=== PATIENT | female | born 1935 | race Caucasian/White ===

== ENCOUNTER → 2023-11-15 10:32 | Outpatient (REF) | payer MEDICARE, SELFPAY ==
[2023-11-16 11:31] LABS: Urine Albumin Negative (Neg - Trace); Urine Bilirubin Negative (Negative); Urine Character Very Cloudy (Clear); Urine Color Yellow; Urine Glucose 1+ (Negative); Urine Ketone Negative (Negative); Urine Leukocyte Negative (Negative); Urine Nitrite Negative (Negative); Urine Occult Blood Negative (Negative); Urine Specific Gravity 1.025 (<1.030); Urine Urobilinogen Negative (Neg - 1+)
== END ==
LOC: OLABMERCHI 10:32
PROVIDERS: ATTENDING PHYSICIAN Hospitalist
DX: N39.0 Urinary tract infection, site not specified (principal)
CPT/HCPCS: 81003

== ENCOUNTER → 2024-01-04 11:15 | Outpatient (REF) | payer MEDICARE, SELFPAY ==
[2024-01-04 12:00] LABS: ALT (SGPT) 16 U/L (0-35); AST (SGOT) 22 U/L (14-36); Albumin 3.5 g/dl (3.5-5.0); Alkaline Phosphatase 87 U/L (38-126); Blood Urea Nitrogen 22 mg/dl (7-17); Calcium 9.1 mg/dl (8.4-10.2); Carbon Dioxide 29 mmol/L (22-30); Chloride 97 mmol/L (98-107); Glucose 166 mg/dl (70-99); Potassium 4.2 mmol/L (3.5-5.1); Sodium 134 mmol/L (135-145); Total Bilirubin 0.5 mg/dl (0.2-1.3); Total Protein 6.2 g/dl (6.3-8.2); eGFR > 60.00
[2024-01-04 14:07] LABS: Glycohemoglobin (HgbA1c) 9.3 % (4.0-5.6)
== END ==
LOC: OLABMERCHI 11:15
PROVIDERS: ATTENDING PHYSICIAN Nurse Practitioner Gerontology; FAMILY PHYSICIAN Hospitalist
DX: E11.40 Type 2 diabetes mellitus with diabetic neuropathy, unspecified (principal)
CPT/HCPCS: 36415; 80053; 83036

== ENCOUNTER → 2024-01-09 12:45 | Outpatient (REF) | payer MEDICARE, SELFPAY | LOC: RAD 12:45 | PROVIDERS: ATTENDING PHYSICIAN Physician Assistant; FAMILY PHYSICIAN Hospitalist | DX: I73.9 Peripheral vascular disease, unspecified (principal); I77.9 Disorder of arteries and arterioles, unspecified; I65.23 Occlusion and stenosis of bilateral carotid arteries | CPT/HCPCS: 93880; 93922; 93925 ==

== ENCOUNTER → 2024-01-18 12:48 | Outpatient (REF) | payer MEDICARE, SELFPAY ==
[2024-01-18 13:24] LABS: % Basophils 0.7 % (0-2); % Eosinophils 4.1 % (0-6); % Immature Granulocytes 0.4 % (0-0.5); % Lymphocytes 21.1 % (20.5-51.1); % Monocytes 10.5 % (1.7-9.3); % Neutrophils 63.2 % (42.2-75.2); Absolute Basophils 0.1 10^3/uL (0-0.2); Absolute Eosinophils 0.3 10^3/uL (0-0.7); Absolute Lymphocytes 1.5 10^3/uL (1.2-3.4); Absolute Monocytes 0.7 10^3/uL (0.1-0.6); Absolute Neutrophils 4.5 10^3/uL (1.4-6.5); Hematocrit 34.7 % (37.0-47.0); Hemoglobin 11.1 g/dL (12.0-16.0); Mean Corpuscular Hgb 27.3 pg (27.0-31.0); Mean Corpuscular Volume 85.5 fL (81.0-99.0); Mean Platelet Volume 11.2 fL (7.4-10.4); Nucleated Red Blood Cells % 0 %; Platelet Count 208 10^3/uL (130-400); Red Blood Cell Count 4.06 10^6/uL (4.20-5.40); Red Cell Dist. Width 13.2 % (11.5-14.5); White Blood Cell Count 7.1 10^3/uL (4.8-10.8)
[2024-01-18 13:59] LABS: Urine Albumin Negative (Neg - Trace); Urine Bilirubin 1+ (Negative); Urine Character Very Cloudy (Clear); Urine Color Yellow; Urine Glucose 1+ (Negative); Urine Ketone Trace (Negative); Urine Leukocyte Trace (Negative); Urine Nitrite Negative (Negative); Urine Occult Blood Negative (Negative); Urine Specific Gravity 1.025 (<1.030); Urine Urobilinogen Negative (Neg - 1+)
[2024-01-18 14:08] LABS: Urine Calcium Oxalate Crystals Present
[2024-01-18 14:09] LABS: Urine Bacteria Many (Negative)
[2024-01-18 14:10] LABS: Urine Red Blood Cell 0-2 /HPF (0-2)
[2024-01-18 14:16] LABS: ALT (SGPT) 13 U/L (0-35); AST (SGOT) 21 U/L (14-36); Albumin 3.3 g/dl (3.5-5.0); Alkaline Phosphatase 91 U/L (38-126); Blood Urea Nitrogen 28 mg/dl (7-17); Calcium 8.8 mg/dl (8.4-10.2); Carbon Dioxide 27 mmol/L (22-30); Chloride 101 mmol/L (98-107); Glucose 146 mg/dl (70-99); Potassium 4.5 mmol/L (3.5-5.1); Sodium 134 mmol/L (135-145); Total Bilirubin 0.4 mg/dl (0.2-1.3); Total Protein 5.7 g/dl (6.3-8.2); eGFR > 60.00
== END ==
LOC: OLABMERCHI 12:48
PROVIDERS: ATTENDING PHYSICIAN Nurse Practitioner Gerontology; FAMILY PHYSICIAN Hospitalist
DX: D64.9 Anemia, unspecified (principal); R44.3 Hallucinations, unspecified; N39.0 Urinary tract infection, site not specified
CPT/HCPCS: 36415; 80053; 81003; 81015; 85025; 87086

== ENCOUNTER → 2024-01-31 12:14 | Outpatient (REF) | payer MEDICARE, SELFPAY ==
[2024-02-01 12:23] LABS: Urine Albumin Negative (Neg - Trace); Urine Bilirubin Negative (Negative); Urine Character Clear (Clear); Urine Color Straw; Urine Glucose Negative (Negative); Urine Ketone Negative (Negative); Urine Leukocyte Negative (Negative); Urine Nitrite Negative (Negative); Urine Occult Blood Negative (Negative); Urine Specific Gravity 1.015 (<1.030); Urine Urobilinogen Negative (Neg - 1+)
== END ==
LOC: OLABMERCHI 12:14
PROVIDERS: ATTENDING PHYSICIAN Nurse Practitioner Gerontology; FAMILY PHYSICIAN Hospitalist
DX: N39.0 Urinary tract infection, site not specified (principal)
CPT/HCPCS: 81003; 87086

== ENCOUNTER 2024-03-19 08:35 | Inpatient (IN) | payer MEDICARE, SELFPAY ==
[2024-03-17 18:52] VITALS: BP 145/105
--- NOTE | 2024-03-17 19:29 | ED.GENMED ---
History of Present Illness
General
Chief Complaint: Abdominal Pain
Source: patient and family
Exam Limitations: none
Time Seen by Provider: 03/17/24 18:58
Nursing documentation reviewed up to this point in time: agreed with
History of Present Illness
History of Present Illness:
88-year-old female hypertensive diabetic breast cancer
Presents with abdominal distention feeling like she needs to vomit she actually stuck her finger down her throat a few times and is feeling better now presents with upper abdominal pain onset a few days ago tells me she never had a colonoscopy, no
prior abdominal surgeries underground smoker she accompanied by her son states that she had diverticulitis before she is having some liquid bowel movements
Past History
Past History
ED Past Medical History: HTN, Hypercholesterolemia, NIDDM and Other (Right breast CA, IS diverticulitis hypertension CAD diabetic hypercholesterol)
ED Past Surgical History: Cardiac (Cardiac stent); Negative Appendectomy or Bowel resection
Social History
Tobacco: Non-smoker
Alcohol: None
Drug: None
Personal:
Living: with family
Employment: Retired
Review of Systems
Review of Systems
All Other Systems: Not applicable
Constitutional: Denies fever or fatigue
Respiratory: Reports no symptoms
Cardiac: Reports no symptoms
ABD/GI: Reports abdominal pain, nausea and vomiting
: Reports no symptoms
Phy Exam
Physical Exam
Physical Exam:
Physical Exam
General: 88 female looks uncomfortable
Neck: No jaundice
Heart: s1/s2 regular rate and rhythm, no murmur. equal radial pulses.
Lungs: no acute respiratory distress. clear bilaterally
Abdomen: Distended tender in the epigastric
Neuro: alert and oriented. no focal neurological deficits
Skin: no rash
Psychiatric: well kept. interactive and cooperative
Extremities: no edema.
Course
Orders/Labs/Results
Orders:
Orders
03/17/24 19:18
Electrocardiogram (*1) Stat
Reason for Study: Abdominal Pain
EKG- Treatment ONCE
Urinalysis Reflex To Culture Urgent
03/17/24 19:21
Iohexol [Omnipaque] See Protocol PO NOW STA
03/17/24 19:22
0.9% Sodium Chloride 1000 ml [Nss] 1,000 ml IV BOLUS
HYDROmorphone [Dilaudid] 0.5 mg IV NOW STA
Ondansetron Injectable [Zofran] 4 mg IV NOW STA
Pantoprazole [Protonix IV] 40 mg IV NOW STA
03/17/24 19:48
Complete Blood Count/With Diff Urgent
Comprehensive Metabolic Panel Urgent
Lipase Urgent
Troponin I Urgent
03/17/24 20:15
CT Abd/pelvis W Iv Cont Urgent
Comment:
Reason For Exam: vomiting, not toerlating po
Abnormal Lab Results
03/17/24
19:48
WBC 11.3 H 10^3/uL
(4.8-10.8)
Abs Immat Gran (auto) 0.1 H 10^3/uL
(0-0.05)
Absolute Neuts (auto) 8.8 H 10^3/uL
(1.4-6.5)
Absolute Monos (auto) 0.9 H 10^3/uL
(0.1-0.6)
Neutrophils % 78.0 H %
(42.2-75.2)
Lymphocytes % 10.9 L %
(20.5-51.1)
BUN 22 H mg/dl
(7-17)
Glucose 104 H mg/dl
(70-99)
03/17/24 19:48
03/17/24 19:48
Vital Signs
Initial and Last Documented VS:
Initial Vital Signs
Temp Pulse Resp BP Pulse Ox
98.3 F 79 16 145/105 99
03/17/24 18:52 03/17/24 18:52 03/17/24 18:52 03/17/24 18:52 03/17/24 18:52
Last Documented Vital Signs
Temp Pulse Resp BP Pulse Ox
98.3 F 88 14 124/68 94
03/17/24 18:52 03/17/24 21:20 03/17/24 21:20 03/17/24 21:20 03/17/24 20:21
MDM/Problems Addressed
Differential Diagnosis Includes:
Bowel obstruction colitis diverticulitis cardiac event pancreatitis reflux duodenitis
MDM/Problems Addressed:
Abdominal pain vomiting
Chronic conditions affecting care: DM, HTN and CAD
Acute Exacerbation and/or Progression of Chronic Illness: DM, HTN and CAD
*Radiology
Radiology exam reviewed: radiology read reviewed
*Pulse Oximetry
Patient hypoxic: no
*EKG
Interpreted by ED Provider?: Yes
Interpretation: normal
Comparison EKG: no comparison EKG present
Heart Rate: 78
Rate: normal
Interval: normal interval
Ischemia: non-specific ST changes
*Civil Engineering Project Manager Interpretation
Rate: normal
Interpretation: normal
Heart Rate: 78
Rhythm: sinus
*Critical Care Note
Total Time (30-74mins, 75-104mins- exclusive of procedures): Not Applicable
Update Note
Update Note:
Update patient unable to tolerate p.o. contrast ordered with IV only
10:25 PM CAT scan report noted patient will require admission unable to tolerate p.o.
Unclear if this is gastritis or related to hiatal hernia,
ED Attending Note
-
Portions of this chart may have been created with voice recognition software.� Occasional wrong word or��sound alike� substitutions may have occurred due to the inherent limitations of voice recognition software.
Discharge Plan
Departure
Patient Disposition: Admit
Date of Disposition: 03/17/24
Time of Disposition: 22:40
Admit to: Med/Surg
Presentation/result/management discussed w/ accepting MD/DO: Hospitalist
Patient with high blood pressure during this ER visit?: No
Condition: Fair
Discharge Problem:
Intractable nausea and vomiting
Instructions: Abdominal Pain
Prescriptions:
No Action
ezetimibe [Zetia] 10 MG tablet
10 mg PO DAILY
alprazolam 0.25 MG tablet
0.25 mg PO DAILY PRN (Reason: anxiety)
Patient Comments:
02/21/2023: last filled 10/25/22, 90 tabs for 90 days from [id number]
aspirin 81 mg Tablet,Delayed Release (Dr/Ec)
81 mg PO DAILY
amlodipine 10 mg tablet
10 mg PO DAILY
insulin aspart U-100 [Novolog FlexPen U-100 Insulin] 100 unit/mL (3 mL) insulin pen
20 unit SC MEALS
insulin degludec [Tresiba FlexTouch U-100] 100 unit/mL (3 mL) insulin pen
46 unit SC HS
acetaminophen [Tylenol] 325 mg Tablet
325 mg PO Q6H PRN (Reason: Pain)
rosuvastatin 20 mg Tablet
20 mg PO QPM
carvedilol 12.5 mg Tablet
12.5 mg PO BID
Rx Instructions:
hold for HR <60
cyanocobalamin (vitamin B-12) 1,000 mcg Tablet
1,000 mcg PO DAILY
pantoprazole 20 mg Tablet,Delayed Release (Dr/Ec)
20 mg PO DAILY
Saccharomyces boulardii [Florastor] 250 mg Capsule
250 mg PO DAILY
Rx Instructions:
daily for 14 days start 03/13/24
escitalopram oxalate 5 mg Tablet
5 mg PO HS
cholecalciferol (vitamin D3) [Vitamin D3] 25 mcg (1,000 unit) Tablet
25 mcg PO DAILY
Referrals:
UNKNOWN - PT DOES,NOT KNOW [Family Provider] -
Interventions
Interventions:
*Risk Screen - Suicide Last Done: 03/17/24 18:52
*General Assessment Last Done: 03/17/24 18:52
*Neglect/Abuse Screening Last Done: 03/17/24 18:52
ED- Fall Risk Assessment Last Done: 03/17/24 20:27
*ED COVID-19 Vaccine History Last Done: 03/17/24 19:36
[facility] Assessment Last Done: 03/17/24 20:27
Discharge Date and Time
Print Language: DUTCH
[2024-03-17 19:42] VITALS: BMI 34.1
[2024-03-17] MEDS: ZOFRAN 4 MG IV (19:51)
[2024-03-17] MEDS: NSS 1000 IV (19:51)
[2024-03-17] MEDS: PROTONIX IV 40 MG IV (19:54)
[2024-03-17 19:55] LABS: % Basophils 0.4 % (0-2); % Eosinophils 1.9 % (0-6); % Immature Granulocytes 0.5 % (0-0.5); % Lymphocytes 10.9 % (20.5-51.1); % Monocytes 8.3 % (1.7-9.3); Absolute Basophils 0.1 10^3/uL (0-0.2); Absolute Eosinophils 0.2 10^3/uL (0-0.7); Absolute Immature Granulocytes 0.1 10^3/uL (0-0.05); Absolute Lymphocytes 1.2 10^3/uL (1.2-3.4); Absolute Monocytes 0.9 10^3/uL (0.1-0.6); Absolute Neutrophils 8.8 10^3/uL (1.4-6.5); Hematocrit 41.2 % (37.0-47.0); Hemoglobin 13.6 g/dL (12.0-16.0); Mean Corpuscular Volume 81.9 fL (81.0-99.0); Mean Platelet Volume 9.5 fL (7.4-10.4); Nucleated Red Blood Cells % 0 %; Platelet Count 262 10^3/uL (130-400); Red Blood Cell Count 5.03 10^6/uL (4.20-5.40); Red Cell Dist. Width 13.4 % (11.5-14.5); White Blood Cell Count 11.3 10^3/uL (4.8-10.8)
[2024-03-17] MEDS: DILAUDID 0.5 MG IV (19:57)
[2024-03-17] MEDS: OMNIPAQUE 50 ML PO (20:01)
[2024-03-17 20:12] LABS: ALT (SGPT) 16 U/L (0-35); AST (SGOT) 25 U/L (14-36); Albumin 4.3 g/dl (3.5-5.0); Alkaline Phosphatase 87 U/L (38-126); Blood Urea Nitrogen 22 mg/dl (7-17); Calcium 9.6 mg/dl (8.4-10.2); Carbon Dioxide 29 mmol/L (22-30); Chloride 99 mmol/L (98-107); Estimated Creatinine Clearance 69 ml/min; Glucose 104 mg/dl (70-99); Lipase 39 U/L (23-300); Potassium 3.9 mmol/L (3.5-5.1); Sodium 137 mmol/L (135-145); Total Bilirubin 0.6 mg/dl (0.2-1.3); Total Protein 7.4 g/dl (6.3-8.2); eGFR > 60.00
--- NOTE | 2024-03-17 20:19 | EDRN ---
Pt ambulated to bathroom to change her diaper because she says she has been having loose stools. Pt returned and started drinking contrast for CT and within couple minutes she vomited liquid. Dr Klein informed and will change CT to IV contrast
only. Pt says she feels much better now 'I haven't felt relief like that before.' Pt has had generalized abdominal pain for the past 2-3 weeks. Pain got worse after she ate lunch today - chess/bologna sandwich and avocado. Pain has been
constant. Pt says she usually makes herself vomit and then she feels better however when she did that today, the pain did not get better. Pt feels bloated and has been burping. Pt denies fever/chills/cough, cp, sob, change in appetite, urinary
symptoms, n/v/d/constipation, weakness, dizziness.
[2024-03-17 20:21] VITALS: BP 126/77
[2024-03-17 20:24] LABS: Troponin I < 0.012 ng/ml
[2024-03-17 21:20] VITALS: BP 124/68
[2024-03-17] MEDS: D5/0.45%NACL 297 IV (23:16)
[2024-03-17 23:19] VITALS: BP 120/74
--- NOTE | 2024-03-17 23:31 | HPS.HSE ---
Addendum entered and electronically signed by Gracia Trevino, 03/18/24 01:25:
IDDM
-will half dose of Tresiba while NPO, cont D5 1/2 NS for now for 1 more bag, monitor glucose
Original Note:
Family Physician
-
Family Physician: NOT KNOW UNKNOWN - PT DOES
Chief Complaint
-
abdominal pain, vomiting
History of Present Illness
The patient is an 88 yo woman with PMH significant for HTN, breast cancer, IDDM, diverticulitis, who presents to the ED due to several days of nausea, early satiety, and vomiting associated with diffuse upper abdominal pain and discomfort. She has
been making herself throw up to relieve her symptoms though abdominal discomfort is persistent. She gets full quickly, and then experiences n/v with oral intake. She denies fever, no chills, no CP, she does have occasional FENG and intermittent
liquid bowel movements, non-bloody. No abdominal surgeries. She mentions her PCP at the assisted living facility where she lives reduced her BP meds by half due to lower BP's recently.
ED txt:
Dilaudid 0.5 mg IV once, IV Zofran, IV Protonix 40 mg, IVF 1 liter, now on D5 1/2 NS 125 mL per hour
Medical History
Past Medical History
Past Medical History: Reports CAD, Cancer (Breast), HTN, Hypercholesterolemia, IDDM and Other (Diverticulitis)
Past Surgical History: Reports Cardiac (stent) and Other (Right breast lumpectomy, cataracts)
Social History
Tobacco: Non-smoker
Alcohol: None
Drug: None
Living: Assisted Living
Family History
Family History: Not pertinent
Allergies / Home Medications
Allergies reflects when Allergies were last updated in [facility].
Home Medications with original date entered in [facility]
Allergy/Medication List:
Allergies
Allergy/AdvReac Type Severity Reaction Status Date / Time
erythromycin base Allergy Unknown Verified 03/17/24 19:43
Home Medications
alprazolam 0.25 mg tablet 0.25 mg PO DAILY PRN anxiety 03/07/17
ezetimibe 10 mg tablet (Zetia) 10 mg PO DAILY 03/07/17
amlodipine 10 mg tablet 10 mg PO DAILY 02/21/23
aspirin 81 mg tablet,delayed release 81 mg PO DAILY 02/21/23
insulin aspart U-100 100 unit/mL (3 mL) subcutaneous pen (Novolog FlexPen U-100 Insulin aspart) 20 unit SC MEALS 02/21/23
insulin degludec 100 unit/mL (3 mL) subcutaneous pen (Tresiba FlexTouch U-100 insulin) 46 unit SC HS 02/21/23
acetaminophen 325 mg tablet (Tylenol) 325 mg PO Q6H PRN Pain 08/18/23
rosuvastatin 20 mg tablet 20 mg PO QPM 08/18/23
Saccharomyces boulardii 250 mg capsule (Florastor) 250 mg PO DAILY 03/17/24
carvedilol 12.5 mg tablet 12.5 mg PO BID 03/17/24
cholecalciferol (vitamin D3) 25 mcg (1,000 unit) tablet (Vitamin D3) 25 mcg PO DAILY 03/17/24
cyanocobalamin (vitamin B-12) 1,000 mcg tablet 1,000 mcg PO DAILY 03/17/24
escitalopram oxalate 5 mg tablet 5 mg PO HS 03/17/24
pantoprazole 20 mg tablet,delayed release 20 mg PO DAILY 03/17/24
Review of Systems
-
A 12 point ROS was completed and negative except as noted: Yes
Physical Exam
Vital Signs
Vital Signs
Temp Pulse Resp BP Pulse Ox
98.3 F 84 14 120/74 94
03/17/24 18:52 03/17/24 23:19 03/17/24 23:19 03/17/24 23:19 03/17/24 20:21
Physical Exam
General: Well Developed, Well Nourished, Comfortable and Conversant
HEENT: NormoCephalic, Anicteric and Moist mucous membranes
Respiratory: Clear
Cardiac: S1/S2, Regular Rhythm and Murmur (2-3/6 TAMMI)
GI: Tender (no peritoneal signs) and Distended
Musculoskeletal: No Clubbing, No Cyanosis and No Edema
Skin: Warm and Dry
Neuro: AO x 3, No Motor Deficits and Nonfocal/grossly intact
Psych: Calm
Laboratory Results
-
03/17/24 19:48
03/17/24 19:48
Laboratory Results
Total Bilirubin 0.6 mg/dl (0.2-1.3) 03/17/24 19:48
AST 25 U/L (14-36) 03/17/24 19:48
ALT 16 U/L (0-35) 03/17/24 19:48
Alkaline Phosphatase 87 U/L (38-126) 03/17/24 19:48
Troponin I < 0.012 ng/ml 03/17/24 19:48
Lipase 39 U/L (23-300) 03/17/24 19:48
Data Reviewed
-
CT Scan: Report Reviewed by me (CT a/p IV contrast large hiatal hernia. There is a large amount of fluid/debris within the herniated portion of the stomach.)
Impression/Plan
-
IMPRESSION:The patient is an 88 yo woman with PMH significant for HTN, breast cancer, IDDM, diverticulitis, who presents to the ED due to several days of nausea, early satiety, and vomiting associated with diffuse upper abdominal pain and
discomfort. She has been making herself throw up to relieve her symptoms though abdominal discomfort is persistent.
ED txt:
Dilaudid 0.5 mg IV once, IV Zofran, IV Protonix 40 mg, IVF 1 liter, now on D5 1/2 NS 125 mL per daniel
#Abdominal pain, intractable nausea/vomiting likely due to large hiatal hernia.
-There is a large amount of fluid/debris within the herniated portion of the stomach
-NPO for now, ok for sips and ice chips
-IVF, continue NS for now
-repeat labs in am
-Surgery consultation for the am
-continue IV PPI daily for now
-supportive care with anti-emetics and pain management prn
#Murmur (unknown if new murmur) and EKG abnormalities
-monitor on tele
-trop less than 0.012, no chest pain
-consider echocardiogram, hold off for now
-check TSH, Mg
#Leukocytosis
-repeat CBC in am
-check UA
#IDDM
-monitor glucose
-SSI for now while NPO
#HTN
-cont BP meds, hold parameters
DVT proph- Lovenox
DNR per patient wishes per discussion with patient
[2024-03-18] VITALS (7 sets, daily range): BP systolic 110–172; BP diastolic 59–85; BMI 33.6
[2024-03-18] MEDS: ZOFRAN 4 MG IV ×2 (01:36→11:54)
[2024-03-18] MEDS: D5/0.45%NACL 1000 IV (01:40)
[2024-03-18] MEDS: DILAUDID 0.5 MG IV ×2 (01:42→11:54)
--- NOTE | 2024-03-18 02:30 | PTCARENOTE ---
Pt arrived to 2S at 0230 via stretcher from ED. Pt was able to ambulate to bed. Pt AAOX3. VSS. complains of no pain. Oriented to room and call patino. Bed in lowest position and locked.
[2024-03-18 02:43] LABS: Glucose - Point of Care 214 mg/dl (70-99)
[2024-03-18 06:55] LABS: Hematocrit 37.6 % (37.0-47.0); Mean Corp Hgb Conc. 31.9 g/dL (33.0-37.0); Mean Corpuscular Volume 84.5 fL (81.0-99.0); Mean Platelet Volume 10.3 fL (7.4-10.4); Platelet Count 236 10^3/uL (130-400); Red Blood Cell Count 4.45 10^6/uL (4.20-5.40); Red Cell Dist. Width 13.3 % (11.5-14.5); White Blood Cell Count 8.6 10^3/uL (4.8-10.8)
[2024-03-18 07:19] LABS: Blood Urea Nitrogen 18 mg/dl (7-17); Calcium 8.7 mg/dl (8.4-10.2); Carbon Dioxide 27 mmol/L (22-30); Chloride 99 mmol/L (98-107); Estimated Creatinine Clearance 69 ml/min; Glucose 219 mg/dl (70-99); Magnesium 1.8 mg/dl (1.6-2.3); Potassium 4.2 mmol/L (3.5-5.1); Sodium 134 mmol/L (135-145); eGFR > 60.00
[2024-03-18 07:35] LABS: Glucose - Point of Care 228 mg/dl (70-99)
[2024-03-18 07:40] LABS: TSH 1.71 uIU/ml (0.47-4.68)
[2024-03-18] MEDS: NOVOLOG FLEXPEN-MODERATE RESISTANCE 3 UNITS SC ×3 (08:29→18:25)
[2024-03-18] MEDS: NORVASC 10 MG PO (08:30)
[2024-03-18] MEDS: ZETIA 10 MG PO (08:31)
[2024-03-18] MEDS: ASPIR LOW (ENTERIC COATED) 81 MG PO (08:31)
[2024-03-18] MEDS: COREG 12.5 MG PO (08:31)
[2024-03-18] MEDS: VITAMIN B-12 1000 MCG PO (08:31)
[2024-03-18] MEDS: PROTONIX IV 40 MG IV (08:32)
[2024-03-18] MEDS: NSS (PRESERVATIVE FREE) 10 ML IV (08:32)
--- NOTE | 2024-03-18 08:59 | W.PN.HOSP.TC ---
Addendum entered and electronically signed by Edgardo Cohen MD 03/18/24 15:37:
Patient seen and examined
Discussed with resident
Impression/plan
Presentation with abdominal pain, intractable nausea and vomiting for weeks
CT scan of the abdomen pelvis consistent with large hiatal hernia, portion of the stomach above the diaphragm with debris's.
NG tube placed on 03/18. Close to 250 mL of bilious fluid upon placement
Patient has relief of symptoms.
Continue n.p.o.
IV fluids
Upper GI series
Continue IV PPI
Aspiration precautions
Leukocytosis likely secondary to stress
Monitor for aspiration
Urinalysis unremarkable
IDDM.
Currently NPO.
Basal bolus protocol with serial Accu-Cheks.
Reduce Lantus dose by 50%
Essential hypertension
Off oral medications secondary to n.p.o.
IV Lopressor.
DVTP
CODE STATUS DNR
Original Note:
Today's Communication/Plan
-
* Keep NPO; okay for ice chips.
* IV hydration and medication.
* NG tube for decompression.
* Will try for upper GI series today; may have to be tomorrow.
Assessment / Plan
Assessment / Plan
Assessment
Mariama Torres, age 88, came to the emergency on 03-17-24 due to several days of nausea, vomiting and early satiety associated with diffuse upper abdominal pain and discomfort. She has been making herself throw up to relieve her symptoms though abdominal
discomfort is persistent. She gets full quickly, and then experiences n/v with oral intake. She denies fever, no chills, no CP, she does have occasional FENG and intermittent liquid bowel movements, non-bloody. No abdominal surgeries.
Impression
* Large hiatal hernia
* First-degree A-V block
* Leukocytosis
* Type II diabetes mellitus
* Hypertension
* Hyperlipidemia
* Depression
Plan
Large hiatal hernia
- Noted on CT AP on 03-17-24 with a large amount of fluid/debris within the herniated portion of the stomach.
- Will keep NPO for now.
- Okay for ice chips.
- IV hydration, pantoprazole, ondansetron and pain management.
- Check upper GI series.
- General surgery following.
- NG tube for decompression.
- Patient expresses concerns regarding falling asleep with the tube due to discomfort; can give diphenhydramine HS to help sleep.
First-degree A-V block
- Stable, noted with other minor ECG abnormalities.
- Troponin 0.012, with no concerning symptoms.
- Monitor on telemetry.
- Can check echocardiogram.
Leukocytosis
- On presentation, now resolved.
- Afebrile with normal vital signs.
- Likely from her symptoms.
- Check UA.
Type II diabetes mellitus
- Insulin dependent.
- SSI while NPO.
- Monitor glucose.
Hypertension
- Normotensive.
- Continue medications.
Hyperlipidemia
- Continue medications
Depression
- Continue escitalopram.
DVT prophylaxis
- Enoxaparin SC.
Code status
- Full.
Anticipated Discharge: 24 - 48 hours
Subjective/Interval History
-
Date of Service: March 18, 2024
Objective Data
-
Labs:
Laboratory Results
03/18/24
05:21
WBC 8.6
Hgb 12.0
Hct 37.6
Plt Count 236
Sodium 134 L
Potassium 4.2
Chloride 99
Carbon Dioxide 27
BUN 18 H
Creatinine 0.5 L
Glucose 219 H
Calcium 8.7
Vital Signs:
Vital Signs
Temp Pulse Resp BP Pulse Ox
98.1 F 92 19 172/59 91
03/18/24 07:47 03/18/24 08:31 03/18/24 07:47 03/18/24 08:31 03/18/24 07:47
I&O
03/17/24 03/18/24 03/19/24
06:59 06:59 06:59
Intake Total 440 / 440
Balance 440 / 440
Review of Systems
-
History Source: Patient
Constitutional: Reports Sleep Disturbance
EENT: Reports No Symptoms Reported
Respiratory: Reports No Symptoms
Cardiac: Reports No Symptoms
Abdomen/GI: Reports Abdominal Pain, Nausea, Vomiting, Anorexia and GERD
Breast: Reports No Symptoms
Genitourinary: Reports No Symptoms
Musculoskeletal: Reports No Symptoms
Skin: Reports No Symptoms
Neuro: Reports No Symptoms
Endocrine: Reports No Symptoms
Hematologic / Lymphatic: Reports No Symptoms
Allergy / Immunology: Reports No Symptoms
Psych: Reports Anxious
Physical Exam
-
General: No Apparent Distress and Comfortable
HEENT: Normocephalic, Atraumatic, Moist Mucous Membranes and Anicteric
Respiratory: Clear to Auscultation and Non Labored Respirations
Cardiac: Regular Rhythm and S1/S2
GI: Soft, Nondistended, Tender (mildly), Distended and Other (NG tube draining bilious secretions)
Rectal: Deferred by Provider
Genito-urinary: No Costovertebral Tender
Musculoskeletal: No Clubbing, No Cyanosis and No Edema
Skin: Warm, Dry and IV Access / Catheter Site
Neuro: Awake, Alert, Oriented and Nonfocal/Grossly Intact
Psych: Calm and Anxious
--- NOTE | 2024-03-18 11:03 | CON.GS ---
Addendum entered and electronically signed by Dm Padilla MD 03/18/24 12:33:
I saw and examined the patient independently.
The Smooth Plater's note was reviewed and I agree with the note, assessment and plan except where noted below.
Comment: This is an 88-year-old female with a history of diabetes, reflux, diverticulitis who presents with a 2-week history of postprandial dysphagia, early satiety and upper abdominal pain. This is pain has been relieved with self-induced
vomiting. She comes in today as her self-induced vomiting has not relieved her pain as it has over the past [address] scan demonstrated a fairly large organoaxial hiatal hernia without compromise the stomach. As she was feeling better initially
no NG tube was placed and she was actually given a diet which she tolerated. Over the course of the day today however she has felt more nauseated. Her exam is unremarkable.
N.p.o., IV fluids. Will place an NG tube today.
Will plan for an upper GI either today versus tomorrow.
Will manage conservatively for now.
All questions answered, patient agreeable to plan of care above.
General surgery will continue to follow.
Original Note:
Medical History
-
Chief Complaint: abdominal pain/pressure
History of Present Illness:
Ms. Torres is a diabetic female with a h/o GERD and diverticulitis without prior abdominal surgeries who presents with a 2 week history of post prandial discomfort and pressure to the upper abdomen. She found that self inducing vomiting relieved this
pressure initially; however, the discomfort became more persistent and was accompanied by nausea and spontaneous vomiting causing her to present. Over the past few days, she also notes that she has become full very quickly with meals which is
unusual for her. She denies fevers or chills. She has been passing stools, with some loose stools noted. Abdomen is non-tender and not distended on exam. She had a clear liquid tray early this am with return of symptoms several hours later.
Past Medical History
Past Medical History: CAD, Cancer (breast), Diverticulitis, GERD, HTN, Hypercholesterolemia, IDDM (a1c 9.0) and Other (PAD, VANESA cpap)
Past Surgical History: Cardiac (Stent to LLE)
Social History
Tobacco: Non-Smoker
Alcohol: None
Living: Assisted Living
Family History
Family History: Reviewed & Not Pertinent
Allergies / Home Medications
Allergy/AdvReac Type Severity Reaction Status Date / Time
erythromycin base Allergy Unknown Verified 03/17/24 19:43
�Medication �Instructions �Recorded �Confirmed �Type
ezetimibe 10 mg tablet (Zetia) 10 mg PO DAILY 03/07/17 03/17/24 History
amlodipine 10 mg tablet 10 mg PO DAILY 02/21/23 03/17/24 History
aspirin 81 mg tablet,delayed 81 mg PO DAILY 02/21/23 03/17/24 History
release
insulin aspart U-100 100 unit/mL 20 unit SC MEALS 02/21/23 03/17/24 History
(3 mL) subcutaneous pen (Novolog
FlexPen U-100 Insulin aspart)
insulin degludec 100 unit/mL (3 46 unit SC HS 02/21/23 03/17/24 History
mL) subcutaneous pen (Tresiba
FlexTouch U-100 insulin)
acetaminophen 325 mg tablet 325 mg PO Q6H PRN Pain 08/18/23 03/17/24 History
(Tylenol)
rosuvastatin 20 mg tablet 20 mg PO QPM 08/18/23 03/17/24 History
Saccharomyces boulardii 250 mg 250 mg PO DAILY 03/17/24 03/17/24 History
capsule (Florastor)
carvedilol 12.5 mg tablet 12.5 mg PO BID 03/17/24 03/17/24 History
cholecalciferol (vitamin D3) 25 25 mcg PO DAILY 03/17/24 03/17/24 History
mcg (1,000 unit) tablet (Vitamin
D3)
cyanocobalamin (vitamin B-12) 1,000 mcg PO DAILY 03/17/24 03/17/24 History
1,000 mcg tablet
escitalopram oxalate 5 mg tablet 5 mg PO HS 03/17/24 03/17/24 History
pantoprazole 20 mg tablet,delayed 20 mg PO DAILY 03/17/24 03/17/24 History
release
Review of Systems
-
History Source: Patient
All other systems: Negative unless noted
A 10 point review of systems was completed, and was negative except as per HPI.
Physical Exam
Vital Signs
Temp Pulse Resp BP Pulse Ox
98.1 F 92 19 172/59 91
03/18/24 07:47 03/18/24 08:31 03/18/24 07:47 03/18/24 08:31 03/18/24 08:28
03/17/24 03/18/24 03/19/24
06:59 06:59 06:59
Actual Weight 88.677 kg
Body Mass Index (BMI) 33.6
Lab Results
03/18/24 05:21
03/18/24 05:21
WBC 8.6 10^3/uL (4.8-10.8) 03/18/24 05:21
Hgb 12.0 g/dL (12.0-16.0) 03/18/24 05:21
Hct 37.6 % (37.0-47.0) 03/18/24 05:21
Plt Count 236 10^3/uL (130-400) 03/18/24 05:21
Abs Immat Gran (auto) 0.1 10^3/uL (0-0.05) H 03/17/24 19:48
Neutrophils % 78.0 % (42.2-75.2) H 03/17/24 19:48
Physical Exam
General: Well Developed and Well Nourished
HEENT: Moist Mucous Membranes
Respiratory: Non Labored Respirations
GI: Soft, Non Tender and Non Distended
Skin: Warm and Dry
Neuro: Awake, Alert and AO x 3
Psych: Calm
Assessment / Plan
-
88 yo female h/o DM (A1c 9.0), GERD and diverticulitis without prior abdominal surgeries who presents with a 2 week history of post prandial discomfort and pressure to the upper abdomen. Self induced vomiting initially released pressure, but over
the weekend, discomfort persisted with nausea as well. She had leukocytosis on presentation. Pain and nausea resolved overnight, but returned several hours after having clear liquid tray. AFVSS. CT imaging in the ED with large hiatal hernia with
distention of the stomach (fluid/debris), ?organoaxial volvulus present upon review of films.
Discussed surgical options with patient including hiatal hernia repair vs gastropexy. No plans for emergent surgery, but pending course can continue discussion on timing.
--Will check UGI study to further evaluate for volvulus
--Keep NPO. Would recommend changing essential PO meds to IV formulation.
--Place NGT for decompression
--IV ppi for GI ppx
--Analgesics/antiemetics prn
Medical management as per primary team
[2024-03-18 11:56] LABS: Glucose - Point of Care 237 mg/dl (70-99)
--- NOTE | 2024-03-18 12:35 | PTCARENOTE ---
Placed Right Nare 18F Brunswick Pump per order. Connected to LCWS, immediately drained 250mL+ of brown bile. Patient tolerated procedure appropriately.
[2024-03-18] MEDS: LOPRESSOR 5 MG IV ×2 (15:19→20:03)
[2024-03-18] MEDS: NSS 1000 IV (15:44)
--- NOTE | 2024-03-18 16:00 | W.PN.UPDATE ---
Update Note
Progress Note Update
Upper GI demonstrates no flow of contrast into the stomach consistent with persistent obstruction from the hiatal hernia. Continue NG tube decompression for now.
Will discuss options with patient but recommend at least surgical decompression and gastropexy this admission.
[2024-03-18 17:11] LABS: Glucose - Point of Care 210 mg/dl (70-99)
[2024-03-18] MEDS: LOVENOX 40 MG SC (18:25)
[2024-03-18] MEDS: CHLORASEPTIC/SORE THROAT SPRAY 1 SPRAY PO (20:01)
[2024-03-18] MEDS: LANTUS 0.119999999999999996 UNITS SC (21:42)
[2024-03-18 21:43] LABS: Glucose - Point of Care 195 mg/dl (70-99)
[2024-03-19] VITALS (17 sets, daily range): BP systolic 84–183; BP diastolic 51–83
[2024-03-19 00:07] LABS: Glucose - Point of Care 163 mg/dl (70-99)
[2024-03-19] MEDS: NSS 1000 IV ×3 (00:10→20:38)
[2024-03-19 00:15] LABS: Urine Albumin Negative (Neg - Trace); Urine Bilirubin Negative (Negative); Urine Character Clear (Clear); Urine Color Yellow; Urine Glucose Negative (Negative); Urine Ketone Trace (Negative); Urine Leukocyte Trace (Negative); Urine Nitrite Negative (Negative); Urine Occult Blood Negative (Negative); Urine Urobilinogen 2+ (Neg - 1+)
[2024-03-19 00:44] LABS: Urine Squamous Cell >30 /LPF (Few)
[2024-03-19 00:45] LABS: Urine Mucus Moderate
[2024-03-19 00:46] LABS: Urine Bacteria Many (Negative); Urine Red Blood Cell 0-2 /HPF (0-2)
[2024-03-19] MEDS: LOPRESSOR 5 MG IV ×4 (01:07→20:15)
[2024-03-19] MEDS: ZOFRAN 4 MG IV ×2 (05:15→19:52)
[2024-03-19 06:02] LABS: Glucose - Point of Care 137 mg/dl (70-99)
[2024-03-19 07:31] LABS: % Basophils 0.3 % (0-2); % Immature Granulocytes 0.3 % (0-0.5); % Lymphocytes 10.4 % (20.5-51.1); % Monocytes 6.7 % (1.7-9.3); % Neutrophils 81.3 % (42.2-75.2); Absolute Eosinophils 0.1 10^3/uL (0-0.7); Absolute Lymphocytes 1.2 10^3/uL (1.2-3.4); Absolute Monocytes 0.8 10^3/uL (0.1-0.6); Absolute Neutrophils 9.4 10^3/uL (1.4-6.5); Hematocrit 37.5 % (37.0-47.0); Hemoglobin 11.8 g/dL (12.0-16.0); Mean Corp Hgb Conc. 31.5 g/dL (33.0-37.0); Mean Corpuscular Hgb 26.8 pg (27.0-31.0); Mean Platelet Volume 10.7 fL (7.4-10.4); Nucleated Red Blood Cells % 0 %; Platelet Count 203 10^3/uL (130-400); Red Blood Cell Count 4.41 10^6/uL (4.20-5.40); Red Cell Dist. Width 13.5 % (11.5-14.5); White Blood Cell Count 11.5 10^3/uL (4.8-10.8)
[2024-03-19 07:58] LABS: Blood Urea Nitrogen 13 mg/dl (7-17); Calcium 8.5 mg/dl (8.4-10.2); Carbon Dioxide 25 mmol/L (22-30); Chloride 100 mmol/L (98-107); Estimated Creatinine Clearance 69 ml/min; Glucose 126 mg/dl (70-99); Potassium 3.7 mmol/L (3.5-5.1); Sodium 134 mmol/L (135-145); eGFR > 60.00
[2024-03-19] MEDS: PROTONIX IV 40 MG IV (08:59)
[2024-03-19] MEDS: NSS (PRESERVATIVE FREE) 10 ML IV (08:59)
--- NOTE | 2024-03-19 08:59 | W.PN.GS2 ---
Today's Communication / Plan
-
-- Laparoscopic reduction of hiatal hernia with gastropexy
-- NGT decompression
-- Ancef for kwasi-operative abx
Assessment / Plan
-
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
Some symptomatic improvement, though not completely resolved. UGI with persistent obstruction and no contrast visualized draining through the stomach. No concerns for gastric ischemia given NGT outputs and overall clinical stability.
Options for management at this time were reviewed with both the patient and her son (Sherif). Option 1 includes continued medical management with NGT decompression in the hopes of the stomach untwisting itself and producing allowing for oral intake.
Advantages include lack of an operation, disadvantages include failure of management with unlikely development of gastric ischemia, and potential persistent symptoms in the days to weeks to come even if we are able to get her through this
hospitalization. Option 2 includes a laparoscopic reduction of hiatal hernia with gastropexy. Advantage includes a less invasive operation, alleviating her current and potentially future volvulus, and limiting her symptoms in the future.
Disadvantages include surgical intervention and potentially recurrence or persistence of some element of her symptoms in the future. Option 3 includes a laparoscopic paraesophageal hernia repair with fundoplication. Advantages include better
long-term durability and symptom control, disadvantages include more risky operation with a longer operative time. The pros and cons of all the above was discussed.
Recommend option to including a laparoscopic reduction of hiatal hernia with gastropexy. Patient and son agree. Complex decision making given that patient is at high risk for persistence of symptoms given her current volvulus and large nature size
of paraesophageal hernia, and also high risk for operative complications given her advanced age and medical comorbidities.
Plan for a laparoscopic reduction of hiatal hernia with gastropexy. The procedure itself, as well as the risks, benefits, and alternatives was discussed. Specifically, we discussed the risks of bleeding, infection, injury to surrounding structures
(stomach, esophagus, lung, liver, spleen), persistent issues with GERD, recurrence of paraesophageal hernia, and general anesthetic complications. Typical postprocedural recovery was discussed. Will plan on advancement of a liquid diet up to a
soft food diet over the course of a 24 to 48-hour hospital stay barring any postoperative complications. Ultimate discharge on a low residue/soft food diet with outpatient follow-up. All questions answered. Consent signed
-- Laparoscopic reduction of hiatal hernia with gastropexy
-- NPO, IVF
-- NGT decompression
-- Ancef for kwasi-operative abx
Subjective Data
-
Date of Service: March 19, 2024
Uncomfortable with NGT in place. Mild nausea. No episodes of vomiting. Abdominal distention and discomfort has improved. No fevers. No increased shortness of breath or chest pain.
Objective Data
-
Intake and Output
03/18/24 03/19/24 03/20/24
06:59 06:59 06:59
Intake Total 440 / 440 2069 / 2069
Output Total 1040 / 1040
Balance 440 / 440 1030 / 1030
Intake:
Oral fluids 120 / 120 780 / 780
IV fluids (Total) 320 / 320 1200 / 1200
Amount instilled into GI Tube ( 90 / 90
Total)
[place] Sump 90 / 90
Output:
Gastrointestinal tube output ( 1040 / 1040
Total)
[place] Sump 1040 / 1040
Other:
Number of approximated MODERATE 1 6
amounts of urine
Number of approximated LARGE 1
amounts of urine
Vital Signs
Temp Pulse Resp BP Pulse Ox
98.2 F 90 18 149/79 94
03/19/24 07:51 03/19/24 07:51 03/19/24 07:51 03/19/24 07:51 03/19/24 07:51
Lab Results
03/19/24 05:26
03/19/24 05:26
Calcium 8.5 mg/dl (8.4-10.2) 03/19/24 05:26
Magnesium 1.8 mg/dl (1.6-2.3) 03/18/24 05:21
Total Bilirubin 0.6 mg/dl (0.2-1.3) 03/17/24 19:48
AST 25 U/L (14-36) 03/17/24 19:48
ALT 16 U/L (0-35) 03/17/24 19:48
Alkaline Phosphatase 87 U/L (38-126) 03/17/24 19:48
Total Protein 7.4 g/dl (6.3-8.2) 03/17/24 19:48
Albumin 4.3 g/dl (3.5-5.0) 03/17/24 19:48
Physical Exam
-
Gen: NAD
NGT: gastric outputs
Abd: obese, soft, NT, mild distension, non-peritoneal
[2024-03-19] MEDS: NOVOLOG FLEXPEN-MODERATE RESISTANCE SC ×3 (10:29→20:11)
[2024-03-19 11:50] LABS: Glucose - Point of Care 147 mg/dl (70-99)
--- NOTE | 2024-03-19 11:57 | W.PN.HOSP.TC ---
Addendum entered and electronically signed by Edgardo Cohen MD 03/19/24 15:29:
Patient seen and examined
Discussed with resident
Impression/plan:
Presentation with abdominal pain intractable nausea and vomiting for weeks.
CT scan of the abdomen pelvis consistent with large hiatal hernia, portion of the stomach above the diaphragm with debris's.
NG tube placed on 03/18. Close to 250 mL of bilious fluid upon placement
Upper GI series confirmed gastric outlet obstruction
Plan is to continue NG tube for decompression
Scheduled for OR for laparoscopic hiatal hernia reduction and gastropexy today on 03/19
Continue IV fluids
Leukocytosis likely secondary to stress
Monitor for aspiration
Urinalysis unremarkable
IDDM.
Currently NPO.
Basal bolus protocol with serial Accu-Cheks.
Reduce Lantus dose by 50%
Essential hypertension
Off oral medications secondary to n.p.o.
IV Lopressor.
DVT prophylaxis
Original Note:
Today's Communication/Plan
-
* Anticipated gastropexy today or tomorrow.
* Keep NPO.
* IV hydration and medication.
* NG tube for decompression.
Assessment / Plan
Assessment / Plan
Assessment
Mariama Torres, age 88, came to the emergency on 03-17-24 due to several days of nausea, vomiting and early satiety associated with diffuse upper abdominal pain and discomfort. She has been making herself throw up to relieve her symptoms though abdominal
discomfort is persistent. She gets full quickly, and then experiences n/v with oral intake. She denies fever, no chills, no CP, she does have occasional FENG and intermittent liquid bowel movements, non-bloody. No abdominal surgeries.
Impression
* Large hiatal hernia
* First-degree A-V block
* Leukocytosis
* Type II diabetes mellitus
* Hypertension
* Hyperlipidemia
* Depression
Plan
Large hiatal hernia
- Noted on CT AP on 03-17-24 with a large amount of fluid/debris within the herniated portion of the stomach.
- Will keep NPO for now.
- Okay for ice chips.
- IV hydration, pantoprazole, ondansetron and pain management.
- Upper GI series shows oral barium within a large hiatal hernia up to 15 minutes with large residual contrast in thoracic esophagus; 'gastric outlet obstruction' cannot be excluded.
- NG tube for decompression.
- Patient expresses concerns regarding falling asleep with the tube due to discomfort; can give diphenhydramine HS to help sleep.
- Laparoscopic reduction of hiatal hernia with gastropexy planned, per general surgery.
- Cefazolin for kwasi-operative prophylaxis.
First-degree A-V block
- Stable, noted with other minor ECG abnormalities.
- Troponin 0.012, with no concerning symptoms.
- Monitor on telemetry.
- Can check echocardiogram.
Leukocytosis
- On presentation, now resolved.
- Afebrile with normal vital signs.
- Likely from her symptoms.
- Check UA.
Type II diabetes mellitus
- Insulin dependent.
- SSI while NPO.
- Monitor glucose.
Hypertension
- Normotensive.
- Continue medications.
Hyperlipidemia
- Continue medications
Depression
- Continue escitalopram.
DVT prophylaxis
- Enoxaparin SC.
Code status
- Full.
Anticipated Discharge: > 48 hours
Subjective/Interval History
-
Date of Service: March 19, 2024
Objective Data
-
Labs:
Laboratory Results
03/19/24
05:26
WBC 11.5 H
Hgb 11.8 L
Hct 37.5
Plt Count 203
Sodium 134 L
Potassium 3.7
Chloride 100
Carbon Dioxide 25
BUN 13
Creatinine 0.4 L
Glucose 126 H
Calcium 8.5
Vital Signs:
Vital Signs
Temp Pulse Resp BP Pulse Ox
98.1 F 84 19 145/65 96
03/19/24 11:16 03/19/24 11:16 03/19/24 11:16 03/19/24 11:16 03/19/24 11:16
I&O
03/18/24 03/19/24 03/20/24
06:59 06:59 06:59
Intake Total 440 / 440 2069 / 2069
Output Total 1040 / 1040
Balance 440 / 440 1030 / 1030
Review of Systems
-
History Source: Patient
Constitutional: Reports Sleep Disturbance
EENT: Reports No Symptoms Reported
Respiratory: Reports No Symptoms
Cardiac: Reports No Symptoms
Abdomen/GI: Reports Abdominal Pain, Nausea, Vomiting, Anorexia and GERD
Breast: Reports No Symptoms
Genitourinary: Reports No Symptoms
Musculoskeletal: Reports No Symptoms
Skin: Reports No Symptoms
Neuro: Reports No Symptoms
Endocrine: Reports No Symptoms
Hematologic / Lymphatic: Reports No Symptoms
Allergy / Immunology: Reports No Symptoms
Physical Exam
-
General: No Apparent Distress and Comfortable
HEENT: Normocephalic, Atraumatic, Moist Mucous Membranes and Anicteric
Respiratory: Clear to Auscultation and Non Labored Respirations
Cardiac: Regular Rhythm and S1/S2
GI: Soft, Nondistended, Tender (mildly), Distended and Other (NG tube draining bilious secretions)
Rectal: Deferred by Provider
Genito-urinary: No Costovertebral Tender
Musculoskeletal: No Clubbing, No Cyanosis and No Edema
Skin: Warm, Dry and IV Access / Catheter Site
Neuro: Awake, Alert, Oriented and Nonfocal/Grossly Intact
Psych: Calm and Anxious
--- NOTE | 2024-03-19 13:10 | CM ---
Brief visit with Mariama today; IA completed. Mariama lives at [facility] and plan is for her to return there when she is feeling better.
Mariama is scheduled for surgery today and asked that I let her rest since she has not had much rest due to her stomach pains.
Mariama was not able to tell me the name of her PCP or her pharmacy.
CM will continue to follow to assist with coordination of services based on post-op needs.
[2024-03-19 17:37] LABS: Glucose - Point of Care 127 mg/dl (70-99)
--- NOTE | 2024-03-19 18:59 | W.IMMPOSTOP ---
Addendum entered and electronically signed by Jf Dye MD 03/22/24 10:03:
[facility]#[id number]
Original Note:
Surgical Immed Post Op Note
-
Primary Surgeon: Hardik
Assisting Surgeon: None
Pre-op Diagnosis: Incarcerated PEH
Post-op Diagnosis: Incarcerated PEH
Procedure Performed: Laparoscopic reduction of PEH and gastropexy
Anesthesia Type: General
Specimen / Cultures: None
Estimated Blood Loss: 3 cc
Complications: None
Operative Findings:
1. Large type III PEH with entirety of stomach within chest, viable, friable, laparoscopic reduction with appropriate orientation
2. Gastropexy with 0 silk x3 along lower aspect of fundus and greater curve
3. EGD with appropriate orientation, no strictures or obstruction, and small remaining hernia
[2024-03-19 20:03] LABS: Glucose - Point of Care 126 mg/dl (70-99)
[2024-03-19] MEDS: MORPHINE SULFATE 1 MG IV ×2 (20:12→20:26)
--- NOTE | 2024-03-19 20:58 | SUR.PHASEI ---
patient initially confused in pacu , reorients easily - initially no pain and then c/o belly pain and nausea, treated with zofran - and then morphine, lopressor given for BP. voided and BP improved with all of the above, sleeps now if undisturbed
--- NOTE | 2024-03-19 21:30 | PTCARENOTE ---
Received patient from PACU via bed around 2129 in stable condition. Pain controlled. Abdominal incisions x5 and x4 stab sites with surgical glue [employer].
[2024-03-19] MEDS: LANTUS 0.119999999999999996 UNITS SC (21:44)
[2024-03-19] MEDS: LOVENOX SC (21:44)
[2024-03-20] VITALS (10 sets, daily range): BP systolic 142–170; BP diastolic 59–76; PULSE 74–76; O2SAT 93
[2024-03-20 00:23] LABS: Glucose - Point of Care 166 mg/dl (70-99)
[2024-03-20] MEDS: NOVOLOG FLEXPEN-MODERATE RESISTANCE 1 UNITS SC ×4 (00:58→18:01)
[2024-03-20] MEDS: LOPRESSOR 5 MG IV ×4 (00:59→20:14)
[2024-03-20 05:54] LABS: Glucose - Point of Care 163 mg/dl (70-99)
[2024-03-20] MEDS: NSS (PRESERVATIVE FREE) 10 ML IV (08:16)
[2024-03-20] MEDS: PROTONIX IV 40 MG IV (08:16)
[2024-03-20 09:09] LABS: Hematocrit 37.7 % (37.0-47.0); Hemoglobin 12.2 g/dL (12.0-16.0); Mean Corp Hgb Conc. 32.4 g/dL (33.0-37.0); Mean Corpuscular Hgb 27.1 pg (27.0-31.0); Mean Corpuscular Volume 83.6 fL (81.0-99.0); Mean Platelet Volume 9.9 fL (7.4-10.4); Platelet Count 206 10^3/uL (130-400); Red Blood Cell Count 4.51 10^6/uL (4.20-5.40); Red Cell Dist. Width 13.3 % (11.5-14.5); White Blood Cell Count 7.5 10^3/uL (4.8-10.8)
--- NOTE | 2024-03-20 09:36 | W.PN.GS2 ---
Today's Communication / Plan
-
-- Trial of clears, tentative plan for advancement to fulls tomorrow and DC on fulls for 1-2 weeks
-- Pain control: Tylenol and Tramadol
-- IVF per Hospitalist, would continue until PO intake ascertained
-- Dispo planning
Assessment / Plan
-
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
UGI 03/18: large type III PEH with entire stomach within the chest, twisted in an organoaxial orientation with no contrast passage beyond the stomach
POD#1 s/p laparoscopic reduction of hiatal hernia and gastropexy
Recovering well. No postoperative concerns. Trial of clears.
-- Trial of clears, tentative plan for advancement to fulls tomorrow and DC on fulls for 1-2 weeks
-- Pain control: Tylenol and Tramadol
-- IVF per Hospitalist, would continue until PO intake ascertained
-- DVT: Lovenox
-- GI: PPI
-- Dispo planning
Subjective Data
-
Date of Service: March 20, 2024
No complaints. Feels improved. No nausea or vomiting. Slight soreness with twisting of abdomen, but pain overall well-controlled. No fevers.
Objective Data
-
Intake and Output
03/19/24 03/20/24 03/21/24
06:59 06:59 06:59
Intake Total 2069 / 0 3110 / 3110
Output Total 1040 / 1040 500 / 500
Balance 1030 / 1030 2610 / 2610
Intake:
Oral fluids 780 / 780
IV fluids (Total) 1200 / 1200 3050 / 3050
normosol 200 / 200
Amount instilled into GI Tube ( 90 / 90 60 / 60
Total)
[place] Sump 90 / 90 60 / 60
Output:
Gastrointestinal tube output ( 1040 / 1040 300 / 300
Total)
[place] Sump 1040 / 1040 300 / 300
Urine, Voided 200 / 200
Other:
Number of approximated MODERATE 6 1
amounts of urine
Number of approximated LARGE 1 1
amounts of urine
How many times incontinent 1
Vital Signs
Temp Pulse Resp BP Pulse Ox
97.8 F 99 18 150/74 94
03/20/24 07:30 03/20/24 08:16 03/20/24 07:30 03/20/24 08:16 03/20/24 07:30
Lab Results
03/20/24 08:39
Calcium 8.5 mg/dl (8.4-10.2) 03/19/24 05:26
Magnesium 1.8 mg/dl (1.6-2.3) 03/18/24 05:21
Total Bilirubin 0.6 mg/dl (0.2-1.3) 03/17/24 19:48
AST 25 U/L (14-36) 03/17/24 19:48
ALT 16 U/L (0-35) 03/17/24 19:48
Alkaline Phosphatase 87 U/L (38-126) 03/17/24 19:48
Total Protein 7.4 g/dl (6.3-8.2) 03/17/24 19:48
Albumin 4.3 g/dl (3.5-5.0) 03/17/24 19:48
Physical Exam
-
Gen: NAD
Abd: soft, mild tenderness, ND, non-peritoneal, incisions c/d/i - no erythema, ecchymosis or drainage
[2024-03-20 09:44] LABS: Blood Urea Nitrogen 18 mg/dl (7-17); Calcium 8.2 mg/dl (8.4-10.2); Carbon Dioxide 23 mmol/L (22-30); Chloride 100 mmol/L (98-107); Estimated Creatinine Clearance 69 ml/min; Glucose 161 mg/dl (70-99); Potassium 3.8 mmol/L (3.5-5.1); Sodium 133 mmol/L (135-145); eGFR > 60.00
[2024-03-20 10:53] LABS: Glucose - Point of Care 167 mg/dl (70-99)
--- NOTE | 2024-03-20 11:31 | W.PN.HOSP.TC ---
Addendum entered and electronically signed by Edgardo Cohen MD 03/20/24 17:51:
Patient seen and examined
Discussed with resident
Impression/plan:
Status post laparoscopic reduction of symptomatic hiatal hernia with gastric outlet obstruction
Doing well.
Diet has been advanced to clears.
Continue to monitor closely with aspiration precautions
IDDM.
Currently on reduced dose of Lantus and off AC insulin.
Continue basal bolus protocol with serial Accu-Cheks and monitor
Essential hypertension
Currently off amlodipine and Coreg.
Monitor BP trend
Plan is to reintroduce preadmission regimen prior to discharge.
Physical therapy assessment
Original Note:
Today's Communication/Plan
-
* Trial of clears today.
* IV hydration.
* Pain management.
* PT/OT/CM consult - discharge planning.
Assessment / Plan
Assessment / Plan
Assessment
Mariama Torres, age 88, came to the emergency on 03-17-24 due to several days of nausea, vomiting and early satiety associated with diffuse upper abdominal pain and discomfort. She has been making herself throw up to relieve her symptoms though abdominal
discomfort is persistent. She gets full quickly, and then experiences n/v with oral intake. She denies fever, no chills, no CP, she does have occasional FENG and intermittent liquid bowel movements, non-bloody. No abdominal surgeries.
Impression
* Large hiatal hernia
* First-degree A-V block
* Leukocytosis
* Type II diabetes mellitus
* Hypertension
* Hyperlipidemia
* Depression
Plan
Large hiatal hernia
- Noted on CT AP on 03-17-24 with a large amount of fluid/debris within the herniated portion of the stomach.
- Will keep NPO for now.
- Okay for ice chips.
- IV hydration, pantoprazole, ondansetron and pain management.
- Upper GI series shows oral barium within a large hiatal hernia up to 15 minutes with large residual contrast in thoracic esophagus; 'gastric outlet obstruction' cannot be excluded.
- NG tube for decompression.
- Patient expresses concerns regarding falling asleep with the tube due to discomfort; can give diphenhydramine HS to help sleep.
- Laparoscopic reduction of hiatal hernia with gastropexy on 03-19-24, without serious or immediate complications.
- Will try clears today per general surgery; can transition to full tomorrow with anticipated discharge soon.
First-degree A-V block
- Stable, noted with other minor ECG abnormalities.
- Troponin 0.012, with no concerning symptoms.
- Monitor on telemetry.
- Can check echocardiogram.
Leukocytosis
- On presentation, now resolved.
- Afebrile with normal vital signs.
- Likely from her symptoms.
- Check UA.
Type II diabetes mellitus
- Insulin dependent.
- SSI while NPO.
- Monitor glucose.
Hypertension
- Normotensive.
- Continue medications.
Hyperlipidemia
- Continue medications
Depression
- Continue escitalopram.
DVT prophylaxis
- Enoxaparin SC.
Code status
- Full.
Anticipated Discharge: 24 - 48 hours
Subjective/Interval History
-
Date of Service: March 20, 2024
Objective Data
-
Labs:
Laboratory Results
03/20/24
08:39
WBC 7.5
Hgb 12.2
Hct 37.7
Plt Count 206
Sodium 133 L
Potassium 3.8
Chloride 100
Carbon Dioxide 23
BUN 18 H
Creatinine 0.5 L
Glucose 161 H
Calcium 8.2 L
Vital Signs:
Vital Signs
Temp Pulse Resp BP Pulse Ox
97.8 F 99 18 150/74 94
06/26/24 07:30 03/20/24 08:16 03/20/24 07:30 03/20/24 08:16 03/20/24 07:30
I&O
03/19/24 03/20/24 03/21/24
06:59 06:59 06:59
Intake Total 2069 / 2069 3110 / 3110
Output Total 1040 / 1040 500 / 500
Balance 1030 / 1030 2610 / 2610
Review of Systems
-
History Source: Patient
Constitutional: Reports Sleep Disturbance
EENT: Reports No Symptoms Reported
Respiratory: Reports No Symptoms
Cardiac: Reports No Symptoms
Abdomen/GI: Reports Other (soreness, mild)
Breast: Reports No Symptoms
Genitourinary: Reports No Symptoms
Musculoskeletal: Reports No Symptoms
Skin: Reports No Symptoms
Neuro: Reports No Symptoms
Endocrine: Reports No Symptoms
Hematologic / Lymphatic: Reports No Symptoms
Allergy / Immunology: Reports No Symptoms
Physical Exam
-
General: No Apparent Distress and Comfortable
HEENT: Normocephalic, Atraumatic, Moist Mucous Membranes and Anicteric
Respiratory: Clear to Auscultation and Non Labored Respirations
Cardiac: Regular Rhythm and S1/S2
GI: Soft, Nondistended and Tender (mildly)
Rectal: Deferred by Provider
Genito-urinary: No Costovertebral Tender
Musculoskeletal: No Clubbing, No Cyanosis and No Edema
Skin: Warm, Dry and IV Access / Catheter Site
Neuro: Awake, Alert, Oriented and Nonfocal/Grossly Intact
Psych: Calm
[2024-03-20] MEDS: NSS 1000 IV ×2 (12:19→20:14)
--- NOTE | 2024-03-20 14:02 | CM ---
met with patient at bedside.her pcp is dr marie and [facility] supplies her meds.i spoke with sandra at [facility] and gave her clinical information about reduction of hh.they use [facility] for vn and pt.sent referral via care port.
pt is sp reduction of hh and gastroplexy.she is tolerating clears-advancing to full liquids tomorrow.im signed by patient.awaiting physical therpay to eval patient post surgery. Plan home with [facility] for vn and home pt pending eval by
therapy.
[2024-03-20 16:57] LABS: Glucose - Point of Care 172 mg/dl (70-99)
[2024-03-20] MEDS: LOVENOX 40 MG SC (18:01)
[2024-03-20 21:40] LABS: Glucose - Point of Care 216 mg/dl (70-99)
[2024-03-20] MEDS: BENADRYL 25 MG IV (22:26)
[2024-03-20] MEDS: LANTUS 0.23000000000000001 UNITS SC (22:26)
[2024-03-21] MEDS: LOPRESSOR 5 MG IV ×2 (03:01→08:47)
[2024-03-21 03:06] VITALS: BP 174/77
[2024-03-21] MEDS: NSS 1000 IV (03:59)
[2024-03-21 06:04] LABS: Blood Urea Nitrogen 18 mg/dl (7-17); Calcium 8.2 mg/dl (8.4-10.2); Carbon Dioxide 25 mmol/L (22-30); Chloride 106 mmol/L (98-107); Estimated Creatinine Clearance 69 ml/min; Glucose 108 mg/dl (70-99); Potassium 3.6 mmol/L (3.5-5.1); Sodium 136 mmol/L (135-145); eGFR > 60.00
[2024-03-21 07:45] LABS: Glucose - Point of Care 102 mg/dl (70-99)
[2024-03-21 07:51] VITALS: BP 169/87
--- NOTE | 2024-03-21 08:08 | W.PN.GS2 ---
Today's Communication / Plan
-
-- Fulls
-- HLIV
Assessment / Plan
-
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
UGI 03/18: large type III PEH with entire stomach within the chest, twisted in an organoaxial orientation with no contrast passage beyond the stomach
POD#2 s/p laparoscopic reduction of hiatal hernia and gastropexy
Recovering well. No postoperative concerns. Trial of clears.
-- Fulls, tentative plan for DC on fulls for 1-2 weeks
-- Pain control: Tylenol and Tramadol
-- HLIV
-- DVT: Lovenox
-- GI: PPI
-- Dispo planning
Subjective Data
-
Date of Service: March 21, 2024
Reports some abdominal soreness. Tolerated clears, no nausea, vomiting, or regurgitation. No fevers.
Objective Data
-
Intake and Output
03/20/24 03/21/24 03/22/24
06:59 06:59 06:59
Intake Total 3110 / 3110 3060 / 3060
Output Total 500 / 500
Balance 2610 / 2610 3060 / 3060
Intake:
Oral fluids 560 / 560
IV fluids (Total) 3050 / 3050 2500 / 2500
normosol 200 / 200
Amount instilled into GI Tube ( 60 / 60
Total)
[place] Sump 60 / 60
Output:
Gastrointestinal tube output ( 300 / 300
Total)
[place] Sump 300 / 300
Urine, Voided 200 / 200
Other:
Number of approximated SMALL 1
amounts of urine
Number of approximated MODERATE 1 5
amounts of urine
Number of approximated LARGE 1
amounts of urine
How many times incontinent 1
Vital Signs
Temp Pulse Resp BP Pulse Ox
98.4 F 69 17 169/87 92
03/21/24 07:51 03/21/24 07:51 03/21/24 07:51 03/21/24 07:51 03/21/24 07:51
Lab Results
03/20/24 08:39
03/21/24 05:16
Calcium 8.2 mg/dl (8.4-10.2) L 03/21/24 05:16
Magnesium 1.8 mg/dl (1.6-2.3) 03/18/24 05:21
Total Bilirubin 0.6 mg/dl (0.2-1.3) 03/17/24 19:48
AST 25 U/L (14-36) 03/17/24 19:48
ALT 16 U/L (0-35) 03/17/24 19:48
Alkaline Phosphatase 87 U/L (38-126) 03/17/24 19:48
Total Protein 7.4 g/dl (6.3-8.2) 03/17/24 19:48
Albumin 4.3 g/dl (3.5-5.0) 03/17/24 19:48
Physical Exam
-
Gen: NAD
Abd: soft, tender overlyign incisions, ND/obese, non-peritoneal, incisions c/d/i - no erythema, ecchymosis or drainage
[2024-03-21] MEDS: NOVOLOG FLEXPEN-MODERATE RESISTANCE SC ×2 (08:47→12:15)
[2024-03-21] MEDS: NSS (PRESERVATIVE FREE) 10 ML IV (08:49)
[2024-03-21] MEDS: PROTONIX IV 40 MG IV (08:49)
--- NOTE | 2024-03-21 11:20 | W.PN.HOSP.TC ---
Addendum entered and electronically signed by Edgardo Cohen MD 03/21/24 14:18:
Patient seen and examined
Discussed with resident.
Impression/plan:
Status post laparoscopic reduction of symptomatic hiatal hernia with gastric outlet obstruction
Doing well.
Full liquid diet
Continue to monitor closely with aspiration precautions
IDDM.
Currently on reduced dose of Lantus and off AC insulin.
Continue basal bolus protocol with serial Accu-Cheks and monitor
Essential hypertension
Reintroduce preadmission antihypertensive regimen including Coreg and amlodipine..
Original Note:
Today's Communication/Plan
-
* Full liquids from today.
* Resume oral medications.
* PT/OT/CM consult - anticipated discharge soon.
Assessment / Plan
Assessment / Plan
Assessment
Mariama Torres, age 88, came to the emergency on 03-17-24 due to several days of nausea, vomiting and early satiety associated with diffuse upper abdominal pain and discomfort. She has been making herself throw up to relieve her symptoms though abdominal
discomfort is persistent. She gets full quickly, and then experiences n/v with oral intake. She denies fever, no chills, no CP, she does have occasional FENG and intermittent liquid bowel movements, non-bloody. No abdominal surgeries.
Impression
* Large hiatal hernia
* First-degree A-V block
* Leukocytosis
* Type II diabetes mellitus
* Hypertension
* Hyperlipidemia
* Depression
Plan
Large hiatal hernia
- Noted on CT AP on 03-17-24 with a large amount of fluid/debris within the herniated portion of the stomach.
- Upper GI series shows oral barium within a large hiatal hernia up to 15 minutes with large residual contrast in thoracic esophagus; 'gastric outlet obstruction' cannot be excluded.
- Had NG tube for decompression; removed prior to the surgery.
- Laparoscopic reduction of hiatal hernia with gastropexy on 06-25-24, without serious or immediate complications.
- Transition to full liquid today; anticipated discharge soon.
- IV hydration, pantoprazole, ondansetron and pain management; change to oral medications today.
First-degree A-V block
- Stable, noted with other minor ECG abnormalities.
- Troponin 0.012, with no concerning symptoms.
- Monitor on telemetry.
- Can check echocardiogram; no indication so far.
Leukocytosis
- On presentation, now resolved.
- Afebrile with normal vital signs.
- Likely from her symptoms.
Type II diabetes mellitus
- Insulin dependent.
- Back to usual basal dosing; SSI coverage.
- Monitor glucose.
Hypertension
- Normotensive.
- Continue medications.
Hyperlipidemia
- Continue medications
Depression
- Continue escitalopram.
DVT prophylaxis
- Enoxaparin SC.
Code status
- Full.
Anticipated Discharge: Within 24 hours
Subjective/Interval History
-
Date of Service: March 21, 2024
Objective Data
-
Labs:
Laboratory Results
03/21/24
05:16
Sodium 136
Potassium 3.6
Chloride 106
Carbon Dioxide 25
BUN 18 H
Creatinine 0.5 L
Glucose 108 H
Calcium 8.2 L
Vital Signs:
Vital Signs
Temp Pulse Resp BP Pulse Ox
98.4 F 69 17 169/87 92
03/21/24 07:51 03/21/24 08:47 03/21/24 07:51 03/21/24 08:47 03/21/24 08:00
I&O
03/20/24 03/21/24 03/22/24
06:59 06:59 06:59
Intake Total 3110 / 3110 3060 / 3060
Output Total 500 / 500
Balance 2610 / 2610 3060 / 3060
Review of Systems
-
History Source: Patient
Constitutional: Reports Sleep Disturbance
EENT: Reports No Symptoms Reported
Respiratory: Reports No Symptoms
Cardiac: Reports No Symptoms
Abdomen/GI: Reports Other (soreness, mild)
Breast: Reports No Symptoms
Genitourinary: Reports No Symptoms
Musculoskeletal: Reports No Symptoms
Skin: Reports No Symptoms
Neuro: Reports No Symptoms
Endocrine: Reports No Symptoms
Hematologic / Lymphatic: Reports No Symptoms
Allergy / Immunology: Reports No Symptoms
Physical Exam
-
General: No Apparent Distress and Comfortable
HEENT: Normocephalic, Atraumatic, Moist Mucous Membranes and Anicteric
Respiratory: Clear to Auscultation and Non Labored Respirations
Cardiac: Regular Rhythm and S1/S2
GI: Soft, Nondistended and Tender (mildly)
Rectal: Deferred by Provider
Genito-urinary: No Costovertebral Tender
Musculoskeletal: No Clubbing, No Cyanosis and No Edema
Skin: Warm, Dry and IV Access / Catheter Site
Neuro: Awake, Alert, Oriented and Nonfocal/Grossly Intact
Psych: Calm
[2024-03-21 11:55] VITALS: BP 138/63
[2024-03-21 12:13] LABS: Glucose - Point of Care 196 mg/dl (70-99)
[2024-03-21] MEDS: NOVOLOG FLEXPEN-MODERATE RESISTANCE 1 UNITS SC ×2 (12:18→16:59)
--- NOTE | 2024-03-21 13:45 | CM ---
Addendum entered by Cosmo Cardoso 03/21/24 14:17:
Attending requested CM consult to inform that patient will need to be on Full liquid diet for at least one week after discharge. This CM left message for Gualberto (admissions) at [facility] relating same.
Original Note:
Full liquids. Discharge Plan of Care: Return to [facility] with [facility] for VN, PT/OT services.
--- NOTE | 2024-03-21 13:57 | PN.CDI ---
CDI
- -
CDI:
Physician Documentation Request
Admit Date: 03/19/24 08:35
Dear Doctor,
Please review the following and provide your response in the progress notes.
Clinical Indicators:
Lab Tests:
Imaging:
Progress Notes:
Nurses Notes:
Ancillary Notes:
Other documentation:
Based on the above, could you clarify in the progress notes, the appropriate diagnosis, if significant, that supports the above abnormalities and additional evaluation, monitoring and/or treatment rendered:
Other
Unable to determine
Use of terms such as suspected, likely, concern for, or probable (associated with a specific diagnosis that is being evaluated, monitored, or treated as if it exists) are acceptable and can be coded in the inpatient setting, when documented at the
time of discharge.
Thank you,
Sandra Howard RN
CDI Specialist
Please use your independent medical judgment in providing your response.
[2024-03-21 15:47] VITALS: BP 140/74
[2024-03-21 16:35] LABS: Glucose - Point of Care 167 mg/dl (70-99)
[2024-03-21] MEDS: LOVENOX 40 MG SC (17:00)
[2024-03-21] MEDS: CRESTOR 20 MG PO (17:00)
[2024-03-21] MEDS: COREG 12.5 MG PO (19:38)
[2024-03-21 22:19] LABS: Glucose - Point of Care 289 mg/dl (70-99)
[2024-03-21] MEDS: BENADRYL 25 MG PO (22:23)
[2024-03-21] MEDS: LEXAPRO 5 MG PO (22:23)
[2024-03-21] MEDS: LANTUS 0.23000000000000001 UNITS SC (22:23)
[2024-03-21] MEDS: ZETIA 10 MG PO (22:23)
[2024-03-21 23:25] VITALS: BP 148/72
[2024-03-22 06:13] LABS: Blood Urea Nitrogen 13 mg/dl (7-17); Calcium 8.5 mg/dl (8.4-10.2); Carbon Dioxide 29 mmol/L (22-30); Chloride 101 mmol/L (98-107); Estimated Creatinine Clearance 69 ml/min; Glucose 138 mg/dl (70-99); Potassium 3.9 mmol/L (3.5-5.1); Sodium 135 mmol/L (135-145); eGFR > 60.00
[2024-03-22 07:15] VITALS: BP 166/79
--- NOTE | 2024-03-22 07:22 | W.PN.GS2 ---
Today's Communication / Plan
-
-- Fulls, tentative plan for DC on fulls for 1 week
-- Miralax
-- Dispo planning
Assessment / Plan
-
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
UGI 03/18: large type III PEH with entire stomach within the chest, twisted in an organoaxial orientation with no contrast passage beyond the stomach
POD#3 s/p laparoscopic reduction of hiatal hernia and gastropexy
Recovering well. No postoperative concerns.
-- Fulls, tentative plan for DC on fulls for 1 week
-- Miralax
-- Pain control: Tylenol and Tramadol
-- HLIV
-- DVT: Lovenox
-- GI: PPI
-- Dispo planning
Subjective Data
-
Date of Service: March 22, 2024
Major complaints. Soreness improving. Tolerated fulls, no nausea, vomiting, or regurgitation. Denies worsening reflux. No chest pain or dysphagia.
Objective Data
-
Intake and Output
03/21/24 03/22/24 03/23/24
06:59 06:59 06:59
Intake Total 3060 / 3060 1919
Balance 3060 / 3060 1919
Intake:
Oral fluids 560 / 560 1919
IV fluids (Total) 2500 / 2500
Other:
Number of approximated SMALL 1
amounts of urine
Number of approximated MODERATE 5 3
amounts of urine
Vital Signs
Temp Pulse Resp BP Pulse Ox
97.7 F 72 20 148/72 94
03/21/24 23:25 03/21/24 23:25 03/21/24 23:25 03/21/24 23:25 03/21/24 23:25
Lab Results
03/20/24 08:39
03/22/24 05:08
Calcium 8.5 mg/dl (8.4-10.2) 03/22/24 05:08
Magnesium 1.8 mg/dl (1.6-2.3) 03/18/24 05:21
Total Bilirubin 0.6 mg/dl (0.2-1.3) 03/17/24 19:48
AST 25 U/L (14-36) 03/17/24 19:48
ALT 16 U/L (0-35) 03/17/24 19:48
Alkaline Phosphatase 87 U/L (38-126) 03/17/24 19:48
Total Protein 7.4 g/dl (6.3-8.2) 03/17/24 19:48
Albumin 4.3 g/dl (3.5-5.0) 03/17/24 19:48
Physical Exam
-
Gen: NAD
Abd: soft, mild tenderness, distended, non-peritoneal, incisions c/d/i - no erythema or drainage, mild ecchymosis
[2024-03-22 08:27] LABS: Glucose - Point of Care 141 mg/dl (70-99)
[2024-03-22] MEDS: MIRALAX 17 GRAMS PO (08:48)
[2024-03-22] MEDS: NOVOLOG FLEXPEN-MODERATE RESISTANCE SC ×2 (08:48→12:53)
[2024-03-22] MEDS: COREG 12.5 MG PO (08:48)
[2024-03-22] MEDS: LOW STRENGTH ASPIRIN 81 MG PO (08:48)
[2024-03-22] MEDS: NORVASC 10 MG PO (08:48)
[2024-03-22] MEDS: PROTONIX 20 MG PO (08:49)
[2024-03-22] MEDS: NSS (PRESERVATIVE FREE) IV (08:49)
[2024-03-22] MEDS: FOLTX 1 TABLET PO (08:49)
--- NOTE | 2024-03-22 10:51 | W.PN.HOSP.TC ---
Addendum entered and electronically signed by Edgardo Cohen MD 03/22/24 15:38:
Patient seen and examined
Discussed with resident
Impression/plan:
Large hiatal hernia with laparoscopic reduction
Doing well
Diet has been advanced to full liquid diet
Patient will be advancing to soft diet after 7 days of liquids.
IDDM.
Well advance to full liquid diet remains close to euglycemic on reduced dose of insulin with holding AC NovoLog and 50% reduced dose of long-acting insulin at bedtime
Patient instructed to monitor oral intake and blood glucose as outpatient and reintroduce her preadmission regimen NovoLog/Tresiba accordingly. She is aware and understands risk of hypoglycemia.
Essential hypertension
Back to preadmission regimen with acceptable BP readings.
Medically stable for discharge home and follow-up with surgery.
Original Note:
Today's Communication/Plan
-
* Anticipated discharge today.
Assessment / Plan
Assessment / Plan
Assessment
Mariama Torres, age 88, came to the emergency on 03-17-24 due to several days of nausea, vomiting and early satiety associated with diffuse upper abdominal pain and discomfort. She has been making herself throw up to relieve her symptoms though abdominal
discomfort is persistent. She gets full quickly, and then experiences n/v with oral intake. She denies fever, no chills, no CP, she does have occasional FENG and intermittent liquid bowel movements, non-bloody. No abdominal surgeries.
Impression
* Large hiatal hernia
* First-degree A-V block
* Leukocytosis
* Type II diabetes mellitus
* Hypertension
* Hyperlipidemia
* Depression
Plan
Large hiatal hernia
- Noted on CT AP on 03-17-24 with a large amount of fluid/debris within the herniated portion of the stomach.
- Upper GI series shows oral barium within a large hiatal hernia up to 15 minutes with large residual contrast in thoracic esophagus; 'gastric outlet obstruction' cannot be excluded.
- Had NG tube for decompression; removed prior to the surgery.
- Laparoscopic reduction of hiatal hernia with gastropexy on 03-19-24, without serious or immediate complications.
- Clear liquids on 03-20-24; transition to full liquid 03-21-24; would continue full liquids for at least 1 up to 2 weeks.
- IV hydration, pantoprazole, ondansetron and pain management; changed to oral medications on 03-21-24.
First-degree A-V block
- Stable, noted with other minor ECG abnormalities.
- Troponin 0.012, with no concerning symptoms.
- Stable
- Can check echocardiogram; no indication so far.
Leukocytosis
- On presentation, now resolved.
- Afebrile with normal vital signs.
- Likely from her symptoms.
Type II diabetes mellitus
- Insulin dependent.
- Back to usual basal dosing; SSI coverage.
- Monitor glucose.
Hypertension
- Normotensive.
- Continue medications.
Hyperlipidemia
- Continue medications
Depression
- Continue escitalopram.
DVT prophylaxis
- Enoxaparin SC.
Code status
- Full.
Anticipated Discharge: Today
Subjective/Interval History
-
Date of Service: March 22, 2024
Objective Data
-
Labs:
Laboratory Results
03/22/24
05:08
Sodium 135
Potassium 3.9
Chloride 101
Carbon Dioxide 29
BUN 13
Creatinine 0.6
Glucose 138 H
Calcium 8.5
Vital Signs:
Vital Signs
Temp Pulse Resp BP Pulse Ox
98.1 F 70 17 166/79 95
03/22/24 07:15 03/22/24 07:15 03/22/24 07:15 03/22/24 07:15 03/22/24 08:00
I&O
03/21/24 03/22/24 03/23/24
06:59 06:59 06:59
Intake Total 3060 / 3060 1919
Balance 3060 / 3060 1919
Review of Systems
-
History Source: Patient
Constitutional: Reports Sleep Disturbance
EENT: Reports No Symptoms Reported
Respiratory: Reports No Symptoms
Cardiac: Reports No Symptoms
Abdomen/GI: Reports Other (soreness, mild)
Breast: Reports No Symptoms
Genitourinary: Reports No Symptoms
Musculoskeletal: Reports No Symptoms
Skin: Reports No Symptoms
Neuro: Reports No Symptoms
Endocrine: Reports No Symptoms
Hematologic / Lymphatic: Reports No Symptoms
Allergy / Immunology: Reports No Symptoms
Physical Exam
-
General: No Apparent Distress and Comfortable
HEENT: Normocephalic, Atraumatic, Moist Mucous Membranes and Anicteric
Respiratory: Clear to Auscultation and Non Labored Respirations
Cardiac: Regular Rhythm and S1/S2
GI: Soft, Nontender and Nondistended
Rectal: Deferred by Provider
Genito-urinary: No Costovertebral Tender
Musculoskeletal: No Clubbing, No Cyanosis and No Edema
Skin: Warm, Dry and IV Access / Catheter Site
Neuro: Awake, Alert, Oriented and Nonfocal/Grossly Intact
Psych: Calm
--- NOTE | 2024-03-22 12:42 | W.DCSUMMARY ---
Documented by User: Jakob Vides MD, Resident 03/22/24 15:00
Discharge Summary
Discharge Data
Date of Admission: 03/19/24
Date of Discharge: 03/22/24
-
Pending Results: No
Hospital Course
Primary discharge diagnosis
* Incarcerated paraesophageal hernia
Secondary discharge diagnoses
* First-degree A-V block
* Leukocytosis
* Type II diabetes mellitus
* Hypertension
* Hyperlipidemia
* Depression
Hospital course
Mariama Torres, age 88, came to the emergency on 03-17-24 due to several days of nausea, vomiting and early satiety associated with diffuse upper abdominal pain and discomfort. Imaging was indicative of a large hiatal hernia suspicious. She was made NPO
and an NG tube was placed for decompression. Her symptoms did not improve and upper GI series showed significant hernia. Several management options were discussed with the patient, and the decision was made to pursue surgical care. She underwent
laparoscopic reduction of hiatal hernia with gastropexy on 03-19-24, without serious or immediate complications. She tolerated clear liquids well the next day, and was transitioned to full liquids the day after that. She also resumed oral
medications without issues.
It is recommended to continue full liquid diet for a period of 1-2 weeks after discharge; to advance diet as tolerated afterwards. This was communicated with the assisted living facility. Her insulin requirement remained low throughout her stay from
reduced intake. Advised to use 23 UNITS of long-acting BEDTIME insulin while on liquid diet (INSTEAD of the usual 46 UNITS). Switch it back to 46 units after resuming normal diet. HOLD short-acting BEFORE MEALS insulin while on liquid diet. CHECK
glucose with meals. If glucose goes too high, start pre-meal insulin. Begin with lower dose, such as 5 units, if glucose is less than 200 but greater than 160. Up-titrate insulin units in increments of 5 to reach prior dosing (20 UNITS).
Discharge Plan
-
Patient Disposition: Home with Home Care
Discharge Diagnosis/Procedures: Incarcerated paraesophageal hernia s/p laparoscopic reduction and gastropexy
Condition: Good
Diet: Other diet
Additional Diets: Follow a full liquid diet for 1 to 2 weeks postoperatively. Dietary advancement to be performed as an outpatient.
Activity: No strenuous activity
Additional Activity: No heavy lifting (>20 lbs) or strenuous activities for 4 weeks postoperatively
Driving Restrictions: No driving if to sore or taking narcotics
Bathing Restrictions: OK to Shower
Blood Work: BMP in 1 week
Other Services: VN, PT and OT
Wound Care: Keep incisions clean and dry. Glue will flake off in 2 to 3 weeks. Stitches will dissolve. Use ice to the abdomen to reduce any bruising or swelling.
Activity Restrictions/Additional Instructions:
Call for fevers (>100.5), nausea or vomiting, worsening abdominal or chest pain
* Please use 23 UNITS of long-acting BEDTIME insulin while on liquid diet (INSTEAD of the usual 46 UNITS). Switch it back to 46 units after resuming normal diet.
* HOLD short-acting BEFORE MEALS insulin while on liquid diet. CHECK glucose with meals. If glucose gets too high, you can start pre-meal insulin even while on full liquid diet. Begin with lower dose, such as 5 units, if glucose is less than 200 but
greater than 160. Up-titrate insulin units in increments of 5 to reach prior dosing (20 UNITS).
Please reach out to your primary for assistance with insulin dosing adjustments.
Instructions: Full liquid diet
Referrals:
Jf Dye MD [Active] - in one to two weeks
UNKNOWN - PT DOES,NOT KNOW [Family Provider] -
Prescriptions:
Continued
ezetimibe [Zetia] 10 MG tablet
10 mg PO DAILY
aspirin 81 mg Tablet,Delayed Release (Dr/Ec)
81 mg PO DAILY
amlodipine 10 mg tablet
10 mg PO DAILY
acetaminophen [Tylenol] 325 mg Tablet
325 mg PO Q6H PRN (Reason: Pain)
rosuvastatin 20 mg Tablet
20 mg PO QPM
carvedilol 12.5 mg Tablet
12.5 mg PO BID
Rx Instructions:
hold for HR <60
cyanocobalamin (vitamin B-12) 1,000 mcg Tablet
1,000 mcg PO DAILY
pantoprazole 20 mg Tablet,Delayed Release (Dr/Ec)
20 mg PO DAILY
Saccharomyces boulardii [Florastor] 250 mg Capsule
250 mg PO DAILY
Rx Instructions:
daily for 14 days start 03/13/24
escitalopram oxalate 5 mg Tablet
5 mg PO HS
cholecalciferol (vitamin D3) [Vitamin D3] 25 mcg (1,000 unit) Tablet
25 mcg PO DAILY
Changed
insulin degludec [Tresiba FlexTouch U-100] 100 unit/mL (3 mL) insulin pen
23 unit SC HS Qty: 0 0RF
Rx Instructions:
Please use 23 units (instead of the usual 46 units) while on a liquid diet. Can transition to 46 units after diet is advanced back to normal. Please reach out to your primary care physician for advice.
Held
insulin aspart U-100 [Novolog FlexPen U-100 Insulin] 100 unit/mL (3 mL) insulin pen
20 unit SC MEALS
Hold Instructions: Please follow glucose levels at home after every meal. If glucose goes too high, start pre-meal insulin. Begin with lower dose, such as 5 units, if glucose less than 200 but greater than 160. Up-titrate insulin units in
increments of 5.
Discharge Orders:
Discharge Patient (As Directed); Ordered 03/22/24
Ordered By: Jakob Vides
Discharge Date and Time
Print Language: AZERI

Documented by User: Edgardo Cohen MD 03/22/24 15:34
Discharge Summary
Discharge Data
Date of Admission: 03/19/24
Date of Discharge: 03/22/24
Discharge Plan
-
Patient Disposition: Home with Home Care
Discharge Diagnosis/Procedures: Incarcerated paraesophageal hernia s/p laparoscopic reduction and gastropexy
Condition: Good
Diet: Other diet
Additional Diets: Follow a full liquid diet for 1 to 2 weeks postoperatively. Dietary advancement to be performed as an outpatient.
Activity: No strenuous activity
Additional Activity: No heavy lifting (>20 lbs) or strenuous activities for 4 weeks postoperatively
Driving Restrictions: No driving if to sore or taking narcotics
Bathing Restrictions: OK to Shower
Blood Work: BMP in 1 week
Other Services: VN, PT and OT
Wound Care: Keep incisions clean and dry. Glue will flake off in 2 to 3 weeks. Stitches will dissolve. Use ice to the abdomen to reduce any bruising or swelling.
Activity Restrictions/Additional Instructions:
Call for fevers (>100.5), nausea or vomiting, worsening abdominal or chest pain
* Please use 23 UNITS of long-acting BEDTIME insulin while on liquid diet (INSTEAD of the usual 46 UNITS). Switch it back to 46 units after resuming normal diet.
* HOLD short-acting BEFORE MEALS insulin while on liquid diet. CHECK glucose with meals. If glucose gets too high, you can start pre-meal insulin even while on full liquid diet. Begin with lower dose, such as 5 units, if glucose is less than 200 but
greater than 160. Up-titrate insulin units in increments of 5 to reach prior dosing (20 UNITS).
Please reach out to your primary for assistance with insulin dosing adjustments.
Instructions: Full liquid diet
Referrals:
Jf Dye MD [Active] - in one to two weeks
UNKNOWN - PT DOES,NOT KNOW [Family Provider] -
Prescriptions:
Continued
ezetimibe [Zetia] 10 MG tablet
10 mg PO DAILY
aspirin 81 mg Tablet,Delayed Release (Dr/Ec)
81 mg PO DAILY
amlodipine 10 mg tablet
10 mg PO DAILY
acetaminophen [Tylenol] 325 mg Tablet
325 mg PO Q6H PRN (Reason: Pain)
rosuvastatin 20 mg Tablet
20 mg PO QPM
carvedilol 12.5 mg Tablet
12.5 mg PO BID
Rx Instructions:
hold for HR <60
cyanocobalamin (vitamin B-12) 1,000 mcg Tablet
1,000 mcg PO DAILY
pantoprazole 20 mg Tablet,Delayed Release (Dr/Ec)
20 mg PO DAILY
Saccharomyces boulardii [Florastor] 250 mg Capsule
250 mg PO DAILY
Rx Instructions:
daily for 14 days start 03/13/24
escitalopram oxalate 5 mg Tablet
5 mg PO HS
cholecalciferol (vitamin D3) [Vitamin D3] 25 mcg (1,000 unit) Tablet
25 mcg PO DAILY
Changed
insulin degludec [Tresiba FlexTouch U-100] 100 unit/mL (3 mL) insulin pen
23 unit SC HS Qty: 0 0RF
Rx Instructions:
Please use 23 units (instead of the usual 46 units) while on a liquid diet. Can transition to 46 units after diet is advanced back to normal. Please reach out to your primary care physician for advice.
Held
insulin aspart U-100 [Novolog FlexPen U-100 Insulin] 100 unit/mL (3 mL) insulin pen
20 unit SC MEALS
Hold Instructions: Please follow glucose levels at home after every meal. If glucose goes too high, start pre-meal insulin. Begin with lower dose, such as 5 units, if glucose less than 200 but greater than 160. Up-titrate insulin units in
increments of 5.
Discharge Orders:
Discharge Patient (As Directed); Ordered 03/22/24
Ordered By: Jakob Vides
Discharge Date and Time
Print Language: AZERI
[2024-03-22 12:48] LABS: Glucose - Point of Care 250 mg/dl (70-99)
--- NOTE | 2024-03-22 14:29 | CM ---
Patient medically cleared for discharge. Left two messages for Chyna GUTIERREZ to discuss return. Awaiting return call.
--- NOTE | 2024-03-22 14:54 | CM ---
Addendum entered by Cosmo Cardoso 03/22/24 15:01:
[facility] .
Addendum entered by Cosmo Cardoso 03/22/24 14:57:
[facility] will provide VN, PT/OT services.
Original Note:
Patient has been medically cleared for discharge to [facility]. Son will transport.
NURSE TO NURSE REPORT # [phone]
FAX # [phone]
[2024-03-22 15:37] VITALS: BP 170/76
== END 2024-03-22 16:37 | disposition home health service (06) | DRG 328 ==
LOC: 2 SOUTH 08:35
PROVIDERS: Student in an Organized Health Care Education/Training Program; Surgery; ADMITTING PHYSICIAN Internal Medicine; ATTENDING PHYSICIAN Internal Medicine; CONSULT PHYSICIAN Surgery; EMERGENCY PHYSICIAN Emergency Medicine
PROC: 0DS64ZZ Reposition Stomach, Percutaneous Endoscopic Approach (ICD-10-PCS; 2024-03-19)
PROC: 0BQT4ZZ Repair Diaphragm, Percutaneous Endoscopic Approach (ICD-10-PCS; 2024-03-19)
PROC: 0DJ08ZZ Inspection of Upper Intestinal Tract, Via Natural or Artificial Opening Endoscopic (ICD-10-PCS; 2024-03-19)
DX: K44.0 Diaphragmatic hernia with obstruction, without gangrene (principal); I44.0 Atrioventricular block, first degree; D72.829 Elevated white blood cell count, unspecified; I10 Essential (primary) hypertension; F32.A Depression, unspecified; E78.00 Pure hypercholesterolemia, unspecified; K31.89 Other diseases of stomach and duodenum; Z66 Do not resuscitate; K21.9 Gastro-esophageal reflux disease without esophagitis; G47.33 Obstructive sleep apnea (adult) (pediatric); E11.51 Type 2 diabetes mellitus with diabetic peripheral angiopathy without gangrene; Z95.5 Presence of coronary angioplasty implant and graft; Z79.82 Long term (current) use of aspirin; Z79.4 Long term (current) use of insulin; Z95.820 Peripheral vascular angioplasty status with implants and grafts
CPT/HCPCS: 74177; 74240; 80048; 80053; 81003; 81015; 82962; 83036; 83690; 83735; 84443; 84484; 85025; 85027; 87086; 93005; 96361; 96374; 96375; 97162; 97166; 99285; C1729; Q9967

== ENCOUNTER → 2024-04-11 12:14 | Outpatient (REF) | payer MEDICARE, SELFPAY ==
[2024-04-11 13:24] LABS: Blood Urea Nitrogen 18 mg/dl (7-17); Calcium 9.1 mg/dl (8.4-10.2); Carbon Dioxide 28 mmol/L (22-30); Chloride 97 mmol/L (98-107); Glucose 251 mg/dl (70-99); Potassium 4.6 mmol/L (3.5-5.1); Sodium 133 mmol/L (135-145); eGFR > 60.00
== END ==
LOC: OLABMERCHI 12:14
PROVIDERS: ATTENDING PHYSICIAN Hospitalist
DX: R94.4 Abnormal results of kidney function studies (principal)
CPT/HCPCS: 80048

== ENCOUNTER → 2024-06-20 09:35 | Outpatient (REF) | payer MEDICARE, SELFPAY ==
[2024-06-20 10:23] LABS: Glycohemoglobin (HgbA1c) 9.5 % (4.0-5.6)
[2024-06-20 10:33] LABS: ALT (SGPT) 15 U/L (0-35); AST (SGOT) 21 U/L (14-36); Albumin 3.4 g/dl (3.5-5.0); Alkaline Phosphatase 73 U/L (38-126); Blood Urea Nitrogen 20 mg/dl (7-17); Calcium 8.9 mg/dl (8.4-10.2); Carbon Dioxide 29 mmol/L (22-30); Chloride 99 mmol/L (98-107); Glucose 176 mg/dl (70-99); HDL Cholesterol 40 mg/dl; LDL Cholesterol, Calculated 54 mg/dl; Potassium 4.6 mmol/L (3.5-5.1); Sodium 137 mmol/L (135-145); Total Bilirubin 0.3 mg/dl (0.2-1.3); Total Cholesterol 112 mg/dl (50-199); Total Protein 5.9 g/dl (6.3-8.2); Triglyceride 92 mg/dl (10-149); Very Low Density Lipoprotein 18 mg/dl (0-30); eGFR > 60.00
== END ==
LOC: OLABMERCHI 09:35
PROVIDERS: ATTENDING PHYSICIAN Hospitalist
DX: E11.40 Type 2 diabetes mellitus with diabetic neuropathy, unspecified (principal); E11.65 Type 2 diabetes mellitus with hyperglycemia
CPT/HCPCS: 36415; 80053; 80061; 83036